=== PATIENT | male | born 1980 | race Caucasian/White ===

== ENCOUNTER 2020-07-22 12:48 | Emergency (ER) | payer BC, OTHER ==
[~2020-07-22] VITALS: Ht 180.3 cm; Wt 97.5 kg
[2020-07-22 12:54] VITALS: BP 160/111
[2020-07-22] MEDS ORDERED: NORCO 5-325 TA1 EAC2 PO (15:51)
[2020-07-22] MEDS ORDERED: KEFLEX500 M1 PO (15:51)
[2020-07-22] MEDS ORDERED: CIPRO500 M1 PO (15:51)
== END 2020-07-22 19:03 | disposition home or self-care (01) ==
LOC: ER 12:48
DX: S61.441A Puncture wound with foreign body of right hand, initial encounter (principal); Z88.1 Allergy status to other antibiotic agents; W22.8XXA Striking against or struck by other objects, initial encounter; Y93.89 Activity, other specified; Y92.89 Other specified places as the place of occurrence of the external cause; Y99.8 Other external cause status